=== PATIENT | male | born 1990 | race Caucasian/White ===

== ENCOUNTER 2024-05-12 17:36 | Observation (INO) | payer OTHER ==
[~2024-05-12] VITALS: Ht 180.3 cm; Wt 184.0 kg
[2024-05-12 17:00] VITALS: BP_SYST 143
--- NOTE | 2024-05-12 17:00 | NUR ---
Dr Schmidt called this nurse with admission
[2024-05-12 17:30] VITALS: BP 143/80; PULSE 69; TEMP 98.6
[2024-05-12] MEDS ORDERED: Ondansetron 4 MG/2 ML VIAL IV PRN (18:45)
[2024-05-12] MEDS ORDERED: Ketorolac 15 MG/ML VIAL IV SCH (18:45)
[2024-05-12] MEDS ORDERED: Naloxone 0.4 MG/ML VIAL IV PRN (18:45)
[2024-05-12] MEDS ORDERED: oxyCODONE 5 MG TAB PO PRN (18:45)
--- NOTE | 2024-05-12 18:51 | NUR ---
PATIENT ARRIVED TO [facility] AT 1730. PATIENT REQUESTED TO URINATE BEFORE GETTING ADMISSION COMPLETE. AMBULATED IND TO RESTROOM AND WAS ABLE TO PASS STONE IN STRAINER. CONTACTED DR. AZAR HAD X RAY DONE AND ADMISSION,INTAKE AND MED REC COMPLELTED. PATIENT IS NOW RESTING COMFORTABLY IN BED WITH FAMILY AT BED SIDE AWAITING TO EAT. CALL LIGHT IN REACH AND PATIENT ORIANTED TO ROOM BY THIS NURSE.
[2024-05-12 20:00] VITALS: BP 109/65; PULSE 72; TEMP 98.2
--- NOTE | 2024-05-12 20:00 | NUR ---
PT A&O X4 LAYING IN BED. VSS. PT WAS ABLE TO TOLERATE PO INTAKE W/O N/V. DENIES PAIN. PT REPORTS READY TO DISCHARGE. CALLED DR AZAR & VERBAL ORDER TO PUT IN DISCHARGE TO HOME ORDER & NO OUTPATIENT FOLLOW UP REQUIRED. REVIEWED DISCHARGE EDUCATION WITH PATIENT & , ALL QUESTIONS ANSWERED. DENIES FURTHER NEEDS. IV TO RT AC REMOVED W/ TIP INTACT. & PT ESCORTED OUT OF BUILDING BY STAFF AT 2019.
== END 2024-05-12 20:20 | disposition home or self-care (01) ==
LOC: SURG 17:36
PROVIDERS: ADMIT Urology
DX: N20.1 Calculus of ureter (principal)
CPT/HCPCS: G0378; G0379